=== PATIENT | female | born 1960 | race Caucasian/White ===

== ENCOUNTER → 2020-01-01 | Outpatient (CLI) | payer OTHER ==
[~2020-01-01] MED LIST: LEVSOD50
[2020-01-01 15:01] LABS: Alanine Aminotransfer (ALT/SGP 22 U/L (12-78); Albumin, Blood 3.3 g/dL (3.4-5.0); Albumin/Globulin Ratio 0.9 (0.8-1.8); Alk Phos 62 U/L (50-136); Aspartate Aminotrans (AST/SGOT 13 U/L (12-37); Bilirubin, Direct <0.1 mg/dL (0.0-0.3); Bilirubin, Indirect Unable to Calculate mg/dL (0.1-0.7); Bilirubin, Total 0.5 mg/dL (0.1-1.0); CHOL/HDL RATIO 2.2; Cholesterol 191 mg/dL (50-200); Globulin, Blood 3.5 g/dL (2.2-4.0); HDL Cholesterol 86 mg/dL (>39); LDL/HDL RATIO 1.1; Low Density Lipoprotein Chol 91 mg/dL (0-110); Total Protein, Blood 6.8 g/dL (6.4-8.2); Triglycerides 69 mg/dL (30-160); Very Low Density Lipoprot Chol 13 mg/dL (6-32)
== END | disposition home or self-care (01) ==
LOC: LAB 13:59 → LAB SHORT 13:59
PROVIDERS: Hospitalist
DX: Z13.220 Encounter for screening for lipoid disorders (principal); E55.9 Vitamin D deficiency, unspecified; Z79.899 Other long term (current) drug therapy
CPT/HCPCS: 80061; 80076; 82306

== ENCOUNTER → 2020-06-05 | Outpatient (CLI) | payer OTHER | END | disposition home or self-care (01) | LOC: LAB SHORT 11:00 | DX: R30.0 Dysuria (principal) | CPT/HCPCS: 87086 ==

== ENCOUNTER → 2021-06-25 | Outpatient (CLI) | payer OTHER | END | disposition home or self-care (01) | LOC: LAB 13:10 → LAB SHORT 13:10 | DX: R35.0 Frequency of micturition (principal) | CPT/HCPCS: 87086 ==

== ENCOUNTER → 2022-01-07 | Outpatient (CLI) | payer OTHER ==
[2022-01-07 12:46] LABS: Adenovirus F 40/41 Not Detected (NOT DETECT); Astrovirus Not Detected (NOT DETECT); Campylobacter Sp Not Detected (NOT DETECT); Cryptosporidium Not Detected (NOT DETECT); Cyclospora Cayetanensis Not Detected (NOT DETECT); E. Coli O157 Not Detected (NOT DETECT); Entamoeba Histolytica Not Detected (NOT DETECT); Enteroaggregative E. coli-EAEC Detected (NOT DETECT); Enteropathogenic E. coli-EPEC Not Detected (NOT DETECT); Enterotoxigenic E. coli-ETEC Detected (NOT DETECT); Giardia Lamblia Not Detected (NOT DETECT); Norovirus GI/GII Not Detected (NOT DETECT); Plesiomonas Shigelloides Not Detected (NOT DETECT); Rotavirus A Not Detected (NOT DETECT); Salmonella Sp Not Detected (NOT DETECT); Sapovirus Not Detected (NOT DETECT); Shiga Toxin-prod E. coli-STEC Not Detected (NOT DETECT); Shigella/Enteroin E. coli-EIEC Not Detected (NOT DETECT); Vibrio Cholerae Not Detected (NOT DETECT); Vibrio Sp Not Detected (NOT DETECT); Yersinia Enterocolitica Not Detected (NOT DETECT)
== END | disposition home or self-care (01) ==
LOC: LAB SHORT 06:50 → LAB 06:50
PROVIDERS: Hospitalist
DX: R19.7 Diarrhea, unspecified (principal)
CPT/HCPCS: 87507

== ENCOUNTER → 2022-02-02 | Outpatient (CLI) | payer OTHER ==
[2022-02-02 19:48] LABS: Influenza A, PCR NEGATIVE (NEGATIVE); Influenza B, PCR NEGATIVE (NEGATIVE); Resp Syncytial Virus, PCR NEGATIVE (NEGATIVE); SARS-Cov-2 (COVID-19) PCR, MMC POSITIVE (NEGATIVE)
== END | disposition home or self-care (01) ==
LOC: LAB SHORT 17:54
PROVIDERS: Hospitalist
DX: U07.1 COVID-19 (principal); R35.0 Frequency of micturition
CPT/HCPCS: 0241U; 87086

== ENCOUNTER 2022-07-01 05:59 | Day surgery (SDC) | payer OTHER ==
[~2022-07-01] VITALS: Ht 152.4 cm; Wt 80.0 kg
[~2022-07-01 05:59] MED LIST changes: +ALBU90OI INH; +ALPR1; +AMOX500; +Aspir 8181 MG PO; +LEVSOD25 PO; -LEVSOD50; +PROG100 PO; +THYR60 PO; +budesonide
--- NOTE | 2022-07-01 07:59 | NUR ---
PATIENT ARRIVED TO RECOVERY ROOM SITTING UPRIGHT IN CHAIR CONVERSING APPROPRIATELY. R RADIAL TR BAND FULLY INFLATED. SITE C/D/I SOFT/NONTENDER, NO EVIDENCE OF HEMATOMA. GOOD PLEUTH WAVE. VSS ON ROOM AIR.
[2022-07-01 08:00] VITALS: BP 129/69
[2022-07-01 08:15] VITALS: BP 134/62
[2022-07-01 08:30] VITALS: BP 133/57
--- NOTE | 2022-07-01 08:36 | NUR ---
PT EATING BREAKFAST, HAS AMBULATED TO THE BATHROOM WITHOUT DIFFICULTY. VSS, FAMILY SITTING WITH PT.
[2022-07-01 09:00] VITALS: BP 128/70
--- NOTE | 2022-07-01 09:00 | NUR ---
RIGHT RADIAL TR BAND HAS BEEN FULLY DEFALTED, NO BLEEDING OR SWELLING NOTED. VSS, FAMILY REMAINS WITH PT. CALL LIGHT IN REACH
[2022-07-01 09:15] VITALS: BP 126/70
[2022-07-01 09:30] VITALS: BP 130/71
--- NOTE | 2022-07-01 09:40 | NUR ---
IV DC'D, CATH INTACT. TR BAND REMOVED FROM RIGT RADIAL SITE, NO BLEEDING OR SWELLING NOTED. PT AND FAMILY VERBALIZED UNDERSTANDING OF DC INSTRUCTIONS AND FOLLOW UP INFO. RIGHT RADIAL SITE WITH CLOTH DOT DRESSING AND SPLINT IN PLACE. PT OUT TO CAR VIA WHEELCHAIR.
== END 2022-07-01 09:40 | disposition home or self-care (01) ==
LOC: MHTC 05:59
DX: R07.89 Other chest pain (principal); R06.00 Dyspnea, unspecified; R55 Syncope and collapse; Z79.82 Long term (current) use of aspirin
CPT/HCPCS: 76937; 93454; 99152; A9270; C1769; C1887; C1894; J1644; J2250; J3010; J7030; J7050; Q9967

== ENCOUNTER → 2024-06-15 | Outpatient (CLI) | payer OTHER | END | disposition home or self-care (01) | LOC: LAB 17:46 → LAB SHORT 17:46 | DX: Z12.72 Encounter for screening for malignant neoplasm of vagina (principal) | CPT/HCPCS: G0123 ==

== ENCOUNTER → 2024-12-14 | Outpatient (CLI) | payer OTHER ==
[2024-12-14 19:44] LABS: Source, Urine Clean Catch
[2024-12-14 19:54] LABS: Bilirubin, Urine Neg (Neg); Color, Urine Yellow (P-Yellow); Glucose Qualitative, Urine Neg (Neg); Ketones, Urine Neg (Neg); Leukocyte Esterase, Urine Neg (Neg); Protein, Urine Neg (Neg); Specific Gravity, Urine 1.015 (1.003-1.022); Urobilinogen, Urine NORM (Normal)
== END ==
LOC: LAB SHORT 18:35 → LAB 18:35
PROVIDERS: Obstetrics & Gynecology
DX: N81.9 Female genital prolapse, unspecified (principal)
CPT/HCPCS: 81003

== ENCOUNTER → 2024-12-18 | Outpatient (CLI) | payer OTHER ==
[2024-12-18 20:35] LABS: Alanine Aminotransfer (ALT/SGP 26 U/L (12-78); Aspartate Aminotrans (AST/SGOT 15 U/L (12-37)
== END ==
LOC: LAB 15:25 → LAB SHORT 15:25
PROVIDERS: Hospitalist
DX: B35.1 Tinea unguium (principal)
CPT/HCPCS: 84450; 84460